=== PATIENT | male | born 1950 | race Caucasian/White ===

== ENCOUNTER → 2020-09-05 10:42 | Outpatient (CLI) | payer MEDICARE, SELFPAY ==
--- NOTE | 2020-09-05 06:00 | DI.RAD_ITS ---
EXAM: XR PAIN CLINIC LUMBAR SP 2V CLINICAL HISTORY: Dx: Lumbar Radiculopathy, LUMBAR EPIDURAL STEROID INJECTION TECHNIQUE: Fluoroscopy was provided for the referring physician for guidance with performing injecti on procedure. COMPARISON: No exams were available for comparison FINDINGS: Please see procedure note for details. Fluoro time: 19.0 second RADIATION DOSE DELIVERED:
[2020-09-05 10:50] VITALS: BP 155/82; PULSE 67; RESP 17; TEMP 37; O2SAT 99
--- NOTE | 2020-09-05 11:20 | PDOC.PAIN ---
Pain Clinic Procedure Note Procedure Note Procedure Note: Lumbar Epidural Steroid Injection Procedure Note COMMENTS: I did review Ms. Lew's note from 08/06/20 and his lumbar spine from 06/28/20. He has had this procedure several times in the past with good success. His last 2 LESIs were in February of 2020 and October of 2019. DX: Lumbosacral radiculopathy Kike Spaulding has been referred to the [facility] for lumbar epidural steroid injection. The patient was greeted by the nurse who verified patients name and . Patient was then taken to the fluoroscopy suite. The patient was interviewed and the medial record reviewed. There were no medical, pharmacologic, radiographic, or other structural contraindications to attempting fluoroscopically guided lumbar epidural steroid injection. Risks and expected side effects as well as potential benefits of the procedure were reviewed and voiced concerns expressed. The patient consent form was signed and witnessed. Standard patient time-out procedure was performed. The patient was placed in the prone position on the fluoroscopy table and automated blood pressure cuff and pulse oximeter applied. The skin entry point for entering/approaching the epidural space at L5-S1 and marked. Following thorough chlorhexadine preparation of the skin and draping and 1% lidocaine infiltration of the skin entry point and subcutaneous tissues, a 18 gauge Touhy needle was placed under fluoroscopic guidance and with loss of resistance technique into the epidural space. Needle tip placement and depth were aided and confirmed by fluoroscopy. There was no paresthesia or return of blood or CSF through the needle. 1 cc's of Omnipaque 240 was injected with clear epidural spread confirmed with fluoroscopy. 80mg depomedrol was injected. There was not any unusual discomfort expressed by Kike Spaulding. Patient's vital signs were stable throughout the procedure and were as recorded in nursing records. Follow up plans and appointments were discussed with patient. Post procedure instruction was given as documented in nursing records and having met discharge criteria and was discharged from the [facility]. COMMENTS: If this procedure is helpful, it can be completed up to 3 times per 12 months. Stuart Landa DO, MPH Pain Management
[2020-09-05 11:23] VITALS: BP 153/79; PULSE 70; RESP 13; O2SAT 100
[2020-09-05] MEDS: Omnipaque 240 MG/ML 50 ML BTL IJ (11:23)
[2020-09-05] MEDS: methylPREDNISolone ACETATE 80 MG/ML VIAL IJ (11:23)
== END ==
PROVIDERS: PCP Family Medicine; Visit Provider Preventive Medicine Occupational Medicine
DX: M54.17 Radiculopathy, lumbosacral region (principal)
CPT/HCPCS: 62323; 72100; J1040; Q9967

== ENCOUNTER 2020-11-11 01:28 | Outpatient (CLI) | payer OTHER, SELFPAY ==
[2020-11-11 10:12] LABS: CREATININE 2.4 mg/dL (0.70-1.30)
== END 2020-11-11 01:29 | disposition home or self-care (01) ==
PROVIDERS: PCP Family Medicine; Visit Provider Family Medicine
DX: I10 Essential (primary) hypertension (principal)
CPT/HCPCS: 82565

== ENCOUNTER 2021-07-01 12:32 | Outpatient (CLI) | payer OTHER, SELFPAY ==
--- NOTE | 2021-07-01 06:00 | DI.RAD_ITS ---
Exam(s) XR PAIN CLINIC LUMBAR SP 2V EXAM: XR PAIN CLINIC LUMBAR SP 2V CLINICAL HISTORY: Dx: Lumbar Radiculopathy TECHNIQUE: 2D and realtime digital imaging was performed. CONTRAST MATERIAL: Refer to procedure report. COMPARISON: No exams were available for comparison FINDINGS: Fluoroscopy was provided for Dr. Gallardo during the performance of a lumbar epidural steroid injection. Please refer to the procedure report for complete details. Ka,r=10.72 mGy IMPRESSION:
[2021-07-01 12:44] VITALS: BP 180/96; PULSE 73; RESP 18; TEMP 37; O2SAT 99
--- NOTE | 2021-07-01 13:28 | PDOC.PAIN_ITS ---
Pain Clinic Procedure Note Procedure Note Procedure Note: Lumbar Epidural Steroid Injection Procedure Note Pre-operative diagnosis: lumbar radiculopathy Post-operative diagnosis: same as above Pre-procedure VAS score: 5/10 Post-procedure VAS score: 5/10 COMMENTS: Patient has back and bilateral leg pain, left more than right, which responded to previous LESI. He stopped his aspirin for today's procedure. DX: Lumbosacral radiculopathy Kike Spaulding has been referred to the [facility] for lumbar epidural steroid injection. The patient was greeted by the nurse who verified patients name and . Patient was then taken to the fluoroscopy suite. The patient was interviewed and the medial record reviewed. There were no medical, pharmacologic, radiographic, or other structural contraindications to attempting fluoroscopically guided lumbar epidural steroid injection. Risks and expected side effects as well as potential benefits of the procedure were reviewed and voiced concerns expressed. The patient consent form was signed and witnessed. Standard patient time-out procedure was performed. The patient was placed in the prone position on the fluoroscopy table and automated blood pressure cuff and pulse oximeter applied. The skin entry point for entering/approaching the epidural space at L5-S1 and marked. Following thorough chlorhexadine preparation of the skin and draping and 1% lidocaine infiltration of the skin entry point and subcutaneous tissues, a 18 gauge Touhy needle was placed under fluoroscopic guidance and with loss of resistance technique into the epidural space. Needle tip placement and depth were aided and confirmed by fluoroscopy. There was no paresthesia or return of blood or CSF through the needle. 1 cc's of Omnipaque 240 was injected with clear epidural spread confirmed with fluoroscopy. 80mg depomedrol was injected. There was not any unusual discomfort expressed by Kike Spaulding. Patient's vital signs were stable throughout the procedure and were as recorded in nursing records. Follow up plans and appointments were discussed with patient. Post procedure instruction was given as documented in nursing records and having met discharge criteria and was discharged from the [facility]. COMMENTS: If this procedure is helpful, it can be completed up to 3 times per 12 months. Patient's blood pressure during pre-procedure intake was elevated with SBP 180-185 with manual check and automated blood pressure cuff measures at 200- 205, DBP remains to be in 80-90s. I instructed patient to follow up with his [facility] physician to discuss hypertension monitoring and management. David Gallardo MD Pain Management
[2021-07-01 13:36] VITALS: BP 184/96; PULSE 80; RESP 13; O2SAT 100
[2021-07-01] MEDS: methylPREDNISolone ACETATE 80 MG/ML VIAL IJ (13:40)
[2021-07-01] MEDS: Omnipaque 240 MG/ML 50 ML BTL IJ (13:41)
== END 2021-07-01 12:33 | disposition home or self-care (01) ==
PROVIDERS: PCP Family Medicine; Visit Provider Internal Medicine
DX: M54.16 Radiculopathy, lumbar region (principal)
CPT/HCPCS: 62323; 72100; J1040; Q9967